=== PATIENT | female | born 1970 | race Caucasian/White ===

== ENCOUNTER 2021-02-02 19:46 | Emergency (ER) | payer OTHER ==
[~2021-02-02] VITALS: Ht 167.6 cm; Wt 90.7 kg
[2021-02-02 20:06] VITALS: BP 138/84
--- NOTE | 2021-02-02 20:09 | NUR ---
to lobby a/w bed ambulatory
--- NOTE | 2021-02-02 21:21 | NUR ---
PT AMBULATED TO BED #4
[2021-02-02 21:48] LABS: BASOPHILS # (AUTO) 0.1 K/uL (0.00-0.22); BASOPHILS % (AUTO) 1.4 % (0.0-2.0); EOSINOPHILS # (AUTO) 0.1 K/uL (0-0.4); EOSINOPHILS % (AUTO) 0.7 % (0.0-4.0); HEMATOCRIT 30.2 % (36-48); HEMOGLOBIN 10.2 g/dL (12.0-16.0); LYMPHOCYTES # (AUTO) 1.7 K/uL (2.5-16.5); LYMPHOCYTES % (AUTO) 22.3 % (20.5-51.1); MEAN CORPUSCULAR HEMOGLOBIN 31 pg (27-31); MEAN CORPUSCULAR HGB CONC 34 g/dL (33-37); MEAN CORPUSCULAR VOLUME 92.5 fL (80-94); MONOCYTES # (AUTO) 0.8 K/uL (0.8-1.0); MONOCYTES % (AUTO) 10.5 % (1.7-9.3); NEUTROPHILS # (AUTO) 4.9 K/uL (1.8-7.7); NEUTROPHILS % (AUTO) 65.1 % (42.2-75.2); PLATELET COUNT (AUTO) 174 K/uL (140-450); RED BLOOD CELL COUNT(AUTO) 3.27 MIL/uL (4.20-5.40); RED CELL DISTRIBUTION WIDTH 13.9 % (11.6-13.7); WHITE BLOOD COUNT (AUTO) 7.6 K/uL (4.8-10.8)
[2021-02-02 22:08] LABS: ANION GAP 14.2 (8-16); CARBON DIOXIDE 26.9 mmol/L (21-32); CREATININE 0.9 mg/dL (0.6-1.3); POTASSIUM 4.1 mmol/L (3.5-5.1); TOTAL BILIRUBIN 0.8 mg/dL (0.0-1.0)
--- NOTE | 2021-02-02 22:15 | NUR ---
PT AMBULATED TO RESTROOM.
[2021-02-02] MEDS ORDERED: MORPHINE SULFATE 4 MG/ML SYR IVP ONE (22:20)
[2021-02-02] MEDS ORDERED: ONDANSETRON 4 MG/2 ML VIAL IVP ONE (22:20)
[2021-02-02] MEDS ORDERED: NACL 0.9% 1,000 ML IV ONE (22:20)
[2021-02-02] MEDS ORDERED: KETOROLAC 30 MG/ML VIAL IVP ONE (22:20)
--- NOTE | 2021-02-02 22:23 | NUR ---
Ultrasound at bedside.
--- NOTE | 2021-02-02 22:30 | NUR ---
Dany wetzel in [facility] - 02/02/21 at 2250 by [email or web address] PT AMBULATED TO RESTROOM
--- NOTE | 2021-02-02 22:35 | NUR ---
IV PLACED IN RIGHT ARM AC 20 G.
[2021-02-02 23:43] VITALS: BP 110/63
--- NOTE | 2021-02-03 00:34 | NUR ---
Dr. Durbin examining patient.
[2021-02-03] MEDS ORDERED: ONDA-188 SL (01:02)
[2021-02-03] MEDS ORDERED: FAMO-92 PO (01:02)
--- NOTE | 2021-02-03 01:39 | NUR ---
Patient discharged with v/s stable. Written and verbal after care instructions given and explained. Patient alert, oriented and verbalized understanding of instructions. Ambulatory with steady gait. All questions addressed prior to discharge. ID band removed. Patient advised to follow up with PMD. Rx of PEPCID AND ZOFRAN given. Patient educated on indication of medication including possible reaction and side effects. Opportunity to ask questions provided and answered.
--- NOTE | 2021-02-03 01:40 | NUR ---
The patient's care was reviewed and supervised by Carole Herzog RN.
== END 2021-02-03 01:39 | disposition home or self-care (01) ==
LOC: MED 19:46
DX: S37.001A Unspecified injury of right kidney, initial encounter (principal); K80.20 Calculus of gallbladder without cholecystitis without obstruction; I10 Essential (primary) hypertension; Z79.899 Other long term (current) drug therapy; X58.XXXA Exposure to other specified factors, initial encounter; Y93.89 Activity, other specified; Y92.89 Other specified places as the place of occurrence of the external cause; Y99.8 Other external cause status
CPT/HCPCS: 36415; 76705; 80053; 81002; 81025; 83690; 85025; 96361; 96374; 96375; 99284; J1885; J2270; J2405; J7030; Q0092